=== PATIENT | female | born 1990 | race African-American/Black ===

== ENCOUNTER 2021-07-14 23:31 | Emergency (ER) | payer MEDICAID ==
[2021-07-15] MEDS ORDERED: Acetaminophen 500 MG TAB ONE (00:46)
== END 2021-07-15 01:17 | disposition home or self-care (01) ==
LOC: CSHERS 23:31
DX: O20.0 Threatened abortion (principal); N85.9 Noninflammatory disorder of uterus, unspecified; O16.2 Unspecified maternal hypertension, second trimester; Z3A.18 18 weeks gestation of pregnancy
CPT/HCPCS: 76815